=== PATIENT | male | born 1975 | race American Indian/Alaskan Native ===

== ENCOUNTER 2019-11-02 09:18 | Emergency (ER) | payer MEDICAID ==
[~2019-11-02] VITALS: Ht 170.2 cm; Wt 93.4 kg
[2019-11-02 09:29] VITALS: BP 134/85; Ht 170.2 cm; Wt 93.4 kg
== END 2019-11-02 11:48 | disposition home or self-care (01) ==
LOC: ED 09:18
DX: A60.01 Herpesviral infection of penis (principal)